=== PATIENT | male | born 2000 | race Caucasian/White ===

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

== ENCOUNTER → 2021-08-18 | Outpatient (CLI) | payer OTHER ==
--- NOTE | 2021-08-18 08:16 | RAD ---
XR HAND_RIGHT 3 VIEWS Clinical indications: Reason: RIGHT HAND PAIN AND SWELLING / Spl. Instructions: / History: Findings: There is an oblique fracture of the shaft of the third metacarpal bone. There is posterior displacement of the distal fracture segment of 4 mm. No significant angulation is evident. There is mild foreshortening. No dislocation or lytic process is evident. Scaphoid bone appears intact. IMPRESSION: Acute third metacarpal fracture. Electronically signed by: Henry Trejo MD (08/18/2021 8:14 AM) [id number]
== END ==
LOC: RAD 07:43
PROVIDERS: ATTEND Physician Assistant Medical
DX: S62.322A Displaced fracture of shaft of third metacarpal bone, right hand, initial encounter for closed fracture (principal); X58.XXXA Exposure to other specified factors, initial encounter; Y93.89 Activity, other specified; Y92.89 Other specified places as the place of occurrence of the external cause; Y99.8 Other external cause status
CPT/HCPCS: 73130